=== PATIENT | female | born 1950 | race Caucasian/White ===

== ENCOUNTER 2020-04-25 18:07 | Inpatient (IN) | payer OTHER ==
[~2020-04-25] VITALS: Ht 167.6 cm; Wt 56.4 kg
[2020-04-25] MEDS ORDERED: TRAMADOL 50 MG50 MG PO (19:41)
[2020-04-25] MEDS ORDERED: COLACE100 MG PO (19:42)
[2020-04-25] MEDS ORDERED: LISINOPRIL20 MG PO (19:42)
[2020-04-25] MEDS ORDERED: PROTONIX40 M2 PO (19:42)
[2020-04-25] MEDS ORDERED: LIPITOR80 MG PO (19:43)
[2020-04-25] MEDS ORDERED: REMERON15 M2 PO (19:43)
[2020-04-25] MEDS ORDERED: VITAMIN D325 MCG PO (19:44)
[2020-04-25] MEDS ORDERED: ASA81BEC PO (19:44)
[2020-04-25] MEDS ORDERED: CLONAZEPAM 0.50.5 M1 PO (19:45)
[2020-04-25] MEDS ORDERED: TOPROL XL25 MG PO (19:46)
[2020-04-25] MEDS ORDERED: ZYPREXA 5 MG TAB5 MG PO (19:46)
[2020-04-26 04:00] VITALS: BP 149/72
--- NOTE | 2020-04-26 06:23 | NUR ---
RECEIVED REPORT FROM ED LAURENT RN, PT ARRIVED ON UNIT 04-26-14 0400 PT AAOX4, VS B/P 149/72, P 96, R 20, 02 SAT 97% RA RR EVEN AND NONLABORED ON RA. PT HAS FULL ROM AND STEADY GAIT; FALL PRECAUTION IN PLACE. PT DENIES ANY PAIN AND SI/HI/VAH. PT DOES REPORT THAT SHE HAS BEEN SEEING AND HEARING KRISTEN HARMON AND HE IS . PT REPORTED SHE NEEDS PLACEMENT INTO A NURSING FACILITY. PT MEDICAL HX HTN, DYSLIPIDEMIA, GASTIC ULCER, ANXIETY AND DEPRESSION, 6 CARDIAC STENTS. PT BED WAS ADJUSTED FOR COMFORT, ZERO S/S OF ACUTE DISTRESS NOTED, PT WILL CONTINUE TO BE MONITOR PER [facility] PROTOCOL.
[2020-04-26 11:24] VITALS: BP 133/73
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
[2020-04-26 19:59] VITALS: BP 152/68
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
[2020-04-27 07:47] VITALS: BP 142/70
[2020-04-27 11:14] VITALS: BP 142/59
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
--- NOTE | 2020-04-27 14:56 | NUR ---
BRII administered a SLUMS with pt; she scored 26/30. SW team will continue to follow pt during her stay on this unit.
[2020-04-27 19:49] VITALS: BP 97/46
[2020-04-28 05:44] LABS: HEMATOCRIT 28.4 % (37.0-47.0); MCH 29.1 pg (26.0-34.0); MCHC 31.6 g/dL (28.0-37.0); MCV 92.1 fL (80.0-100.0); RBC 3.08 mil/uL (4.20-5.00); RDW 15.7 % (10.5-14.5); WBC 6.9 thou/uL (4.0-11.0)
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
[2020-04-28 06:34] LABS: CALCIUM 9.6 mg/dL (8.5-10.1); CREATININE 1.1 mg/dL (0.6-1.0); POTASSIUM 3.8 mmol/L (3.5-5.1)
[2020-04-28 09:20] VITALS: BP 123/64
[2020-04-28 09:25] VITALS: BP 123/64
--- NOTE | 2020-04-28 09:28 | NUR ---
ASSUMED CARE AT 0700 THIS MORNING. PT. UP, DRESSED AND IN THE DINING ROOM. SHE SAT UP UNTIL MEDS WERE PASSED AND TAKEN, AND BREAKFAST WAS GIVEN TO HER. THEN SHE WENT TO HER ROOM AND LAYED DOWN IN BED. SHE WAS QUIET, AND COOPERATIVE WITH STAFF.
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
[2020-04-28 20:20] VITALS: BP 93/38
--- NOTE | 2020-04-29 03:37 | NUR ---
ASSUMED CARE ON 04/28/20 @ 19:00, A&OX4, GIVING BOTH THE PRESIDENT ELECT BUZZ WELL THE PRESIDENT TR NAMES. COOPERATED WITH ASSESSMENT, HRRR, LUNGS CTA BILAT, ABD N X 4Q, REPORTS A SMALL BM TODAY. NO BEHAVIOR THAT INDICATES HALLUCINATIONS. ANXIETY AND DEPRESSION NOTED. COMPLIANT WITH GROUP UNDERWRITER, TAKES MEDS WHOLE WITH THIN WATER. DIET IS MECHANICAL GROUND SOFT. SLEEPING AT THIS WRITING, WILL CONTINUE TO MONITOR PER UNIT PROTOCOL FOR COMFORT AND SAFETY.
[2020-04-29 06:28] LABS: HEMATOCRIT 25.8 % (37.0-47.0); HEMOGLOBIN 8.3 gm/dL (12.0-15.0); MCH 29.7 pg (26.0-34.0); MCHC 32.2 g/dL (28.0-37.0); MCV 92.2 fL (80.0-100.0); RBC 2.8 mil/uL (4.20-5.00); RDW 15.7 % (10.5-14.5); WBC 6.8 thou/uL (4.0-11.0)
[2020-04-29 06:54] LABS: CALCIUM 9.3 mg/dL (8.5-10.1)
[2020-04-29 07:02] LABS: % SATURATION 6 % (20-39); IRON 28 ug/dL (50-170); TIBC 431 ug/dL (250-450)
[2020-04-29 07:31] LABS: FOLIC ACID 14.4 ng/mL (8.6-58.9)
[2020-04-29 09:17] VITALS: BP 137/56
--- NOTE | 2020-04-29 13:50 | NUR ---
SW met with pt who said that she was still hearing voices. She said that they are not telling her to harm herself, but instead that staff are going to be harmed. She said she is not currently experiencing SI. SW team will continue to follow pt during her stay on this unit.
--- NOTE | 2020-04-29 18:45 | NUR ---
patient calm but easily irritated. upset with peer wandering in room. spoke with margie marques - stated still hearing voices of male telling her not to eat. compliant with medications. ambulatory and continent. states still depressed and anxious at times. feels environment does not help with her stress.
[2020-04-29 19:47] VITALS: BP 112/57
[2020-04-30 00:06] LABS: GLYCOHEMOGLOBIN (HGB A1C) 5.6 % (4.8-5.6)
--- NOTE | 2020-04-30 03:16 | NUR ---
ASSUMED CARE ON 04/29/20 @ 19:00, COOPERATED WITH ASSESSMENT AND COMPLIANT WITH MEDICATION, ASKING FOR ANXIETY MEDICATION WHICH WAS PROVIDED @ 2200, AFTER WHICH SHE SLEPT QUIETLY, RESPIRATIONS EVEN AND UNLABORED. BED IN LOW POSIITON, WILL CONTINUE TO MONITOR PER UNIT PROTOCOL.
[2020-04-30 04:43] VITALS: BP 112/57
[2020-04-30 05:41] LABS: HEMATOCRIT 26.3 % (37.0-47.0); HEMOGLOBIN 8.5 gm/dL (12.0-15.0)
[2020-04-30 09:13] VITALS: BP 137/63
--- NOTE | 2020-04-30 12:20 | NUR ---
CONSTRICTED AFFECT-WITHDRAWN TO ROOM-NO NOTED INTERACTION WITH PEER GROUP AND REFUSED ACTIVITIES-HAS NOT MADE REFERENCE TO SEEING PEOPLE OR "THE MAN" SO FAR TODAY BUT HAS BEEN MINIMALLY VERBAL WITH STAFF.REQUESTED AND RECEIVED ATIVAN 0.5MG PO PRN AT 0915 FOR REPORTED ANXIETY. DENIES C/O PAIN. GAIT STEADY WITHOUT ASSISTIVE DEVICES.APPETTIE FAIR .COMOLIENT WITH MEDICATIONS.
--- NOTE | 2020-04-30 13:17 | NUR ---
SW spoke with pt and obtained her social security number. SW verified pt has active Medicaid with her social security number. BRII sent referrals to [facility], [facility], [facility], [facility], [facility], [facility], and [facility]. BRII team will continue to follow pt during her stay on this unit.
[2020-04-30 20:52] VITALS: BP 111/48
[2020-04-30 22:35] VITALS: BP 124/72
--- NOTE | 2020-05-01 06:25 | NUR ---
PROGRESS PT ALERT WITH FLAT AFFECT. DOESN'T MAKE EYE CONTACT FOR VERY LONG. REQUESTED NIGHT TIME MEDS AND SLEPT THROUGHOUT NIGHT.ON A MECHANICAL SOFT DIET BUT ABLE TO SWALLOW PILLS WHOLE. TAKING THIN LIQUIDS WITH SUPERVISION AND TOLERATING WITHOUT DIFFICULTY NO BM THIS SHIFT AWAITING SAMPLE FOR OCCULT BLOOD. UP AD EDDIE GAIT STEADY, PARTICIPATING IN GROUP THERAPY. ENCOURAGE PT TO CONTINUE TO PARTICIPATE.
[2020-05-01 09:59] VITALS: BP 110/64
[2020-05-01 11:11] VITALS: BP 110/64
--- NOTE | 2020-05-01 12:15 | NUR ---
RT PROGRESS NOTE- CHRISTIANO HAS NOT BEEN AN ACTIVE PARTICIPANT IN THE [place], RETURNING TO HER ROOM DURING ANY UNSCHEDULED TIME ON THE UNIT. WITH PLENTY OF ENCOURAGEMENT, CHRISTIANO ATTENDS RECREATION GROUPS BUT DOES NOT ACTIVELY ENGAGE SOCIALLY. SHE PRESENTS WITH DEPRESSED AFFECT ALMOST EACH TIME. WHEN ASKED TODAY IF SHE IS STILL HEARING VOICES SHE DOES ENDORSE THAT SHE IS HEARING THEM BUT DOES NOT OFFER MUCH INFORMATION COMPARED TO INTERVIEW UPON INITIAL ASSESSMENT WHEN SHE ADMITTED. MODERN GREEK STUDIES PROFESSOR WILL CONTINUE TO ENCOURAGE PARTICIPATION.
--- NOTE | 2020-05-01 13:14 | NUR ---
1310 RESUMMED CARE FROM OVERNIGHT SHIFT THIS AM, PATIENT IN ROOM QUIET CALM. PATIENT ATE BREAKFAST TOOK MEDICATION WITHOUT INCIDENCE, PATIENT TOOK A SHOWER THIS AM. PATIENTS ALERT AND ORIENTED TIMES 4 PATIENTS ABDOMEN SOFT FLAT BOWEL SOUNDS PRESENT. PATIENTS LUNGS CLEAR PATIENT DENIES SI/HI BUT STILL HAS AH/VH OF THE MAN THAT IS . PATIENT STATES HE WAS TELLING HER NOT TO TALK WITH ME. PATIENT PARTICIPATED IN GROUPS PATIENT CALM COOPERATIVE DOES NOT INTERACT WITH OTHER PATIENTS. WILL CONTINUE TO MONITOR PATIENT FOR SAFETY AND BEHAVIORS.
[2020-05-01 20:35] VITALS: BP 102/53
--- NOTE | 2020-05-02 04:54 | NUR ---
ASSUMED PT'S CARE THIS PM SHIFT. PT ALERT AND ORIENTED. FORGETFUL. PT WAS IN HER RM AT TIME OF ASSESSMENT. WAS CALM AND COOPERATIVE WITH CARE. SLEPPT WELL THIS SHIFT. MEDS GIVEN PER EMAR. PT DID LOCK HER DOOR FEW TIMES STATING THAT A PEER WAS WANDERING INTO HER ROOM. PT VOICED THAT LIDOCAINE PATCH FELL OFF AT TIME OF SHOWER. PT'S SON CALLED WITH QUESTIONS REGARDING HOW MOM'S HALLUCINATIONS STARTED. NURSING INFORMED SON THAT IT OWULD BE BEST TO TALK WITH DOC. PT'S SON ALSO HAD CQUESTIONS REGARDING DC HE VOICED THAT PT'S LANDLORD WAS EVICTING PT. PT VOICED HE WOULD LIKE TO SPEAK WITH BOTH DOC AND SW. WILL PASS ON TO HAVE DOC AND SW CALL PT'S SON TODAY. WILL CONTINUE TO MONITOR PT.
[2020-05-02 08:16] VITALS: BP 123/63
--- NOTE | 2020-05-02 11:19 | NUR ---
BRII sent referrals to the following rcf's: [facility] [place], [facility], [facility], [facility], [facility], [place], [facility], [place], [place], [place], [facility], and [facility]. SW team will continue to follow tp during her stay on this unit.
--- NOTE | 2020-05-02 13:22 | NUR ---
Alert and orientated X4. Denies SI/HI. States she had several BMs last night, senna held. Also reporting that she had several seizures, none visualized. Regular steady gait. Breath sounds clear. Reg HR auscultated. Color pink with brisk capillary refill and palpable peripheral pulses. Independent with voiding. Active bowel sounds over soft, rounded abdomen. Asking that 0.5 cm brown macule with raised vesicular area on about half of the macule on her R upper chest to be assessed. States it has been there for about a year. Isolating in room most of the day.
[2020-05-02 19:20] VITALS: BP 127/51
--- NOTE | 2020-05-03 04:20 | NUR ---
ASSUMED PT'S CARE THIS PM SHIFT. PT ALERT AND ORIENTED. PT WAS CALM AND COOPERATIVE WITH CARE. TOOK MEDS PER EMAR. PT DENIED PAIN THIS SHIFT. AMBULATES INDEPENDENTLY. WILL CONTINUE TO MONITOR.
[2020-05-03 08:15] LABS: EOSINOPHILS 2.3 % (0.0-3.0); HEMATOCRIT 23.3 % (37.0-47.0); HEMOGLOBIN 7.3 gm/dL (12.0-15.0); LYMPHOCYTES 30.5 % (24.0-44.0); MCH 28.2 pg (26.0-34.0); MCHC 31.5 g/dL (28.0-37.0); MCV 89.6 fL (80.0-100.0); MONOCYTES 8.7 % (1.0-8.0); PLATELET COUNT 416 thou/uL (150-400); POLYS 57.5 % (36.0-66.0); RBC 2.61 mil/uL (4.20-5.00); RDW 15.4 % (10.5-14.5); WBC 5.2 thou/uL (4.0-11.0)
[2020-05-03 08:39] LABS: ALBUMIN 3.4 g/dL (3.4-5.0); CALCIUM 9.6 mg/dL (8.5-10.1); CREATININE 0.9 mg/dL (0.6-1.0); MAGNESIUM 1.7 mg/dL (1.8-2.4); PHOSPHORUS 4.4 mg/dL (2.6-4.7); POTASSIUM 3.8 mmol/L (3.5-5.1); TOTAL BILIRUBIN 0.2 mg/dL (0.2-1.0); TOTAL PROTEIN 6.8 g/dL (6.4-8.2)
[2020-05-03 08:59] VITALS: BP 106/56
[2020-05-03] MEDS ORDERED: CLONAZEPAM 1 MG1 M1 PO (10:08)
[2020-05-03] MEDS ORDERED: BUSPIRONE HCL10 MG PO (10:10)
[2020-05-03] MEDS ORDERED: METOPROLOL SUCC25 M1 PO (10:16)
--- NOTE | 2020-05-03 11:26 | NUR ---
PT CARE ASSUMED AT 0700. A&Ox4. PT PARTICIPATING IN GROUP THERAPY. CALM AND COOPERATIVE. DULOXETINE STARTED AT 40MG WAS ON 60MG AT HOME. NO HALLUCINATION NOTED AT THIS MOMENT. VITALS STABLE. HAS EATEN BOTH MEALS. ALL MEDICATIONS TAKEN PER EMAR. WILL CONTINUE TO MONITOR.
--- NOTE | 2020-05-03 19:49 | NUR ---
ASSUMED CARE OF PATIENT AT 1900. PATIENT RESTING IN BED WITH EYES OPEN. SHE DENIES PAIN, SI, HI, AND AVH. PATIENT HAS BILATERAL LCTA, HEART SOUNDS S1S2 HEARD AND REGULAR. BOWEL SOUNDS ACTIVE X 4 QUADS. PATIENT VERY PALE IN FACE. NO SOA. VSS. REPORT CALLED TO KARELY ON 4W AT 1930. PATIENT BEING TRANSFERRED BY WC WITH MASK ON. STOOL TO BE COLLECTED. HS MEDS GIVEN BEFORE TRANSFER. PATIENT STABLE.
[2020-05-03 20:20] VITALS: BP 98/41
[2020-05-03 20:45] LABS: HEMATOCRIT 21.9 % (37.0-47.0); HEMOGLOBIN 7.1 gm/dL (12.0-15.0)
--- NOTE | 2020-05-04 07:55 | EKG ---
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
== END 2020-05-03 20:31 | disposition short-term general hospital (02) | DRG 881 ==
LOC: SBH
PROVIDERS: Internal Medicine; ADMIT Psychiatry & Neurology Psychiatry; ATTEND Psychiatry & Neurology Psychiatry
DX: F32.9 Major depressive disorder, single episode, unspecified (principal); N17.9 Acute kidney failure, unspecified; R45.851 Suicidal ideations; E78.5 Hyperlipidemia, unspecified; F41.9 Anxiety disorder, unspecified; K21.9 Gastro-esophageal reflux disease without esophagitis; R73.9 Hyperglycemia, unspecified; F20.9 Schizophrenia, unspecified; F44.81 Dissociative identity disorder; F29 Unspecified psychosis not due to a substance or known physiological condition; F03.90 Unspecified dementia, unspecified severity, without behavioral disturbance, psychotic disturbance, mood disturbance, and anxiety; R06.02 Shortness of breath; I10 Essential (primary) hypertension; K25.9 Gastric ulcer, unspecified as acute or chronic, without hemorrhage or perforation; E53.8 Deficiency of other specified B group vitamins; D64.9 Anemia, unspecified; Z20.828 Contact with and (suspected) exposure to other viral communicable diseases; Z79.899 Other long term (current) drug therapy; Z79.82 Long term (current) use of aspirin; Z95.5 Presence of coronary angioplasty implant and graft
CPT/HCPCS: 10880

== ENCOUNTER 2020-04-25 19:20 | Emergency (ER) | payer OTHER ==
[~2020-04-25] VITALS: Ht 152.4 cm; Wt 59.0 kg
[2020-04-25] MEDS ORDERED: TRAMADOL 50 MG50 MG PO (19:41)
[2020-04-25] MEDS ORDERED: LISINOPRIL20 MG PO (19:42)
[2020-04-25] MEDS ORDERED: PROTONIX40 M2 PO (19:42)
[2020-04-25] MEDS ORDERED: COLACE100 MG PO (19:42)
[2020-04-25] MEDS ORDERED: LIPITOR80 MG PO (19:43)
[2020-04-25] MEDS ORDERED: REMERON15 M2 PO (19:43)
[2020-04-25] MEDS ORDERED: ASA81BEC PO (19:44)
[2020-04-25] MEDS ORDERED: VITAMIN D325 MCG PO (19:44)
[2020-04-25] MEDS ORDERED: CLONAZEPAM 0.50.5 M1 PO (19:45)
[2020-04-25] MEDS ORDERED: ZYPREXA 5 MG TAB5 MG PO (19:46)
[2020-04-25] MEDS ORDERED: TOPROL XL25 MG PO (19:46)
[2020-04-26 04:15] VITALS: BP 102/46
== END 2020-04-26 04:20 | disposition still patient (30) ==
LOC: ER 19:20
DX: F29 Unspecified psychosis not due to a substance or known physiological condition (principal); F03.90 Unspecified dementia, unspecified severity, without behavioral disturbance, psychotic disturbance, mood disturbance, and anxiety; Z79.82 Long term (current) use of aspirin; Z79.899 Other long term (current) drug therapy; Z20.828 Contact with and (suspected) exposure to other viral communicable diseases

== ENCOUNTER 2020-05-03 19:10 | Inpatient (IN) | payer OTHER ==
[~2020-05-03] VITALS: Ht 170.2 cm; Wt 65.8 kg
[~2020-05-03 19:10] MED LIST: ASA81BEC PO; BUSPIRONE HCL10 MG PO; CLONAZEPAM 0.50.5 M1 PO; CLONAZEPAM 1 MG1 M1 PO; COLACE100 MG PO; LIPITOR80 MG PO; LISINOPRIL20 MG PO; METOPROLOL SUCC25 M1 PO; PROTONIX40 M2 PO; REMERON15 M2 PO; TOPROL XL25 MG PO; TRAMADOL 50 MG50 MG PO; VITAMIN D325 MCG PO; ZYPREXA 5 MG TAB5 MG PO
[2020-05-03 21:05] VITALS: BP 121/57
[2020-05-04 01:24] VITALS: BP 102/82; BP 94/69
--- NOTE | 2020-05-04 01:30 | NUR ---
Blood transfusion was started and blood varified with Abigail GARCIA ([place] super- visor). Blood bank account matches the account on the blood infusion bag. Pt. offers no complaints.
--- NOTE | 2020-05-04 04:45 | NUR ---
Pt. tolerated blood transfusion without difficulty.
[2020-05-04 05:05] VITALS: BP 130/65
--- NOTE | 2020-05-04 06:12 | NUR ---
Pt. admitted to [facility] unit from [facility]. She is alert and oriented. Pt. accompanied by staff. She offers no complaints. Am- bulates steadily. Admission assessment and history is completed.
[2020-05-04 07:12] LABS: HEMATOCRIT 26.1 % (37.0-47.0); HEMOGLOBIN 8.4 gm/dL (12.0-15.0); MCH 29.3 pg (26.0-34.0); MCHC 32.4 g/dL (28.0-37.0); MCV 90.5 fL (80.0-100.0); RBC 2.88 mil/uL (4.20-5.00); RDW 14.9 % (10.5-14.5); WBC 5.4 thou/uL (4.0-11.0)
[2020-05-04 07:26] LABS: CALCIUM 9.1 mg/dL (8.5-10.1); CREATININE 0.9 mg/dL (0.6-1.0); TOTAL BILIRUBIN 0.3 mg/dL (0.2-1.0); TOTAL PROTEIN 5.9 g/dL (6.4-8.2)
[2020-05-04 08:11] VITALS: BP 128/70
--- NOTE | 2020-05-04 10:00 | NUR ---
Assess due to RD consult received for high nutrition screening risk. Admit from [facility] unit to medical floor due to drop in hgb levels/anemia. Hx psychosis, SI, HLD, htn and gastric ulcer. Visit this am, pt asking for solid food, and just had a liquid tray. States appetite has been very good and this was confirmed while on [facility] unit eating 100%. Pt did report about 20 lb wt loss over past year but could not relate reason. GI has assessed this am, and diet will advanced but NPO tomorrow for procedure. Low nutrition risk at this time
--- NOTE | 2020-05-04 12:05 | NUR ---
PT A&OX4, VSS, DENIES PAIN. PATIENT ADAMANT ABOUT DISCHARGING. PATIENT REFUSED ANTIBIOTICS. NO SIGNS OF DISTRESS. IV REMOVED. PATIENT DISCHARGED HOME WITH ANTIBIOTICS. ALL BELONGINGS WITH PATIENT.
--- NOTE | 2020-05-04 12:14 | NUR ---
PT ADMITTED RELATED TO ANEMIA. CM REVIEWED CHART AND SPOKE WITH CARE TEAM. CM CALLED AND SPOKE WITH PT THIS DAY. PT APPEARED TO BE A&O X4. CM ROLE INTRODUCED. PT INDICATED SHE HAD BEEN LIVING ALONE IN A DUPLEX IN [facility]. 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 PT INDICATED SHE HADN'T HAD ANY O2 OR NEBULIZER TREATMENTS AT HOME. PT'S PCPC OS DR. LAURENT LORD. PT INDICATED THAT HSE HAD ADMITTED TO [facility] 04/26. CM IDNICATED THAT IF SHE CAN'T RETURN HOME THAT SHE NEEDS TO GO TO AN AL FACILITY. IT LOOKS LIKE [facility] HAD SENT REFERRALS TO A NUMBER OF FACILITIES FOR REVIEW FOR POSSIBLE ADMISSION. PT CONFIRMED THAT SHE WAS GOING TO BE EVICTED FROM HER CUPLEX. PT INDICATED SHE HADN'T SPOKEN WITH LISETH MARTINEZ. CM TO ATTEMPT PC TO HIM. PT SAW PT AND DISCHARGED HER. CM TO FOLLOW INDICATED WITH DC PLANNING. PT TO HAVE EGD THIS AM.
--- NOTE | 2020-05-04 19:41 | NUR ---
PT A&OX3-4, VSS, DENIES PAIN. PATIENT STATES SHE HAS AUDITORY HALLUCINATIONS. PATIENT HAS FLAT AFFECT, HAS BEEN COOPERATIVE. PATIENT TOLERATING DIET, RESTED IN BED. PATIENT STEADY ON FEET, SBA TO BATHROOM. NO SIGNS OF DISTRESS. WILL CONTINUE TO MONITOR.
[2020-05-04 19:58] VITALS: BP 130/71
--- NOTE | 2020-05-05 06:58 | NUR ---
Pt. rested quietly during the night when checked on during frequent rounds. She requested a lidoderm and nicotine patch. Tessy RIVERA notified this shift and new orders received (see cpoe). Pt. has been up ad loni and steady on her feet. No reports of any hallucinations.
[2020-05-05 09:12] VITALS: BP 125/64
--- NOTE | 2020-05-05 12:26 | NUR ---
PT HAVING AN EGD THIS DAY. CM CALLED PT'S LANDLORD AND LEFT VM. PT AND OT INDICATED THAT PT WOULD BE SAFE TO RETUTN HOME ONCE MEDICALLY STABLE. CM TO FOLLOW INDICATED WITH DC PLANNING.
--- NOTE | 2020-05-05 19:23 | NUR ---
PT A&OX4, VSS, DENIES PAIN. PATIENT REMOVED IV THIS AM AND DID NOT WANT THIS NURSE TO REPLACE. PATIENT STATED SHE WOULD RATHER HAVE OR PLACE IT. RIGHT FA IV PLACED IN OR. PATIENTS IRON WAS NOT GIVEN DUE TO ROUTE NOT BEING AVAILABLE. CLONAZEPAM AND METOPROLOL GIVEN THIS AM D/T BEING NPO. PATIENT HAD EGD TODAY AND RETURNED TO FLOOR APPROX 1400. APPROX 1800 PATIENT STATES SHE WANTS THE IRON TO BE GIVEN. THIS NURSE TOLD PATIENT THE NEXT DOSE IS DUE AT 0900 TOMORROW AND I WOULD RATHER START THAT DOSE. PATIENT CAME OUT OF ROOM YELLING APPROX 1815, STATING SHE WANTS THE IRON NOW AND HOW UPSET SHE IS. PATIENT WAS GIVEN IRON AT 1845. NO SIGNS OF DISTRESS, WILL CONTINUE TO MONITOR.
[2020-05-05 19:48] VITALS: BP 123/62
[2020-05-06 05:42] LABS: HEMATOCRIT 25.4 % (37.0-47.0); HEMOGLOBIN 8.3 gm/dL (12.0-15.0); MCH 29.7 pg (26.0-34.0); MCHC 32.7 g/dL (28.0-37.0); RBC 2.79 mil/uL (4.20-5.00); RDW 15.3 % (10.5-14.5); WBC 7.1 thou/uL (4.0-11.0)
--- NOTE | 2020-05-06 08:27 | P ---
[facility] [place] [address] [place] [address] PROCEDURE REPORT Name: CHRISTIANO QUEEN Room #: 457-P ADM IN M.R.#: [id number] Admission: 05/03/20 Attend Phys: Matt Fisher MD Discharge: Date of : 46 Report #: [id number] THIS REPORT FOR: cc: FAM - Family physician unknown FAM - Family physician unknown Moises Harvey MD ~ DATE OF SERVICE: 05/05/2020 PROCEDURE PERFORMED: Upper endoscopy with biopsies. HISTORY OF PRESENT ILLNESS: The patient is a 69-year-old female with a history of anemia. Hemoglobin on admission was 9, it has dropped to a low of 7.1 during this hospitalization, did not require blood transfusions. Her most recent hemoglobin was yesterday at 8.4. She has been receiving IV iron infusions. She has a history of peptic ulcer disease, apparently diagnosed [address] [facility]. Since that time, she has been taking Protonix on a daily basis. She is on aspirin 81 mg. She does report some dark stools, unclear if the patient has been on oral iron recently. Her stool was Hemoccult negative x 1 here on 05/02/2020. Plan is for EGD. The patient denies any dysphagia, nausea or vomiting. DESCRIPTION OF PROCEDURE: The risks and benefits of the procedure were explained to the patient, those risks including but not limited to bleeding, perforation and the risk of sedation. She understood these risks and gave informed consent. Sedation was given using propofol per anesthesia. Next, using a standard Olympus upper endoscope, the scope was placed in the patient's mouth and advanced under direct vision through the esophagus, stomach and into the second portion of the duodenum. The larynx was normal in appearance. The esophagus was normal throughout. The GE junction was normal. Upon entering the stomach, a medium-sized hiatal hernia was noted. Overall, the gastric mucosa was normal. No evidence of ulcerations or erosions. The pylorus was normal and patent. The duodenal bulb, first and second portion were all normal. Biopsies of the duodenum were obtained to rule out the possibility of celiac sprue. Scope was then withdrawn and the procedure terminated. The patient tolerated the procedure well. IMPRESSION: 1. Medium-sized hiatal hernia. 2. Otherwise, normal upper endoscopy. RECOMMENDATIONS: 1. Await biopsy results. 2. Continue daily PPI therapy. 3. Continue to monitor hemoglobin. Stool is Hemoccult negative x 1. 4. Upper endoscopy was normal. The patient reportedly had colonoscopy [address] [address] PROCEDURE REPORT Name: CHRISTIANO QUEEN Room #: 457-P [facility] IN ..#: [id number] Admission: 05/03/20 Attend Phys: Matt Fisher MD Discharge: Date of : 46 Report #: [id number] ago that was normal. We will continue to follow. Thank you for allowing me to participate in her care. <ELECTRONICALLY SIGNED> By: Moises Harvey MD 05/06/20 0827 1311 [id number] Moises Harvey MD /nt
[2020-05-06 08:34] VITALS: BP 134/74
--- NOTE | 2020-05-06 15:45 | NUR ---
CM FOLOWED UP WITH PT THIS AM TO SEE IF SHE HAD CONTACTED HER LANDLORD JUAN CRAFT. SHE INDICATED SHE HAD LEFT HIM TWO VM'S BUT HADN'T SPOKEN WITH HIM YET. CM ASKED IF CM MIGHT CALL HIM WELL AND PT CONSENTED. CM CALLED AND SPOKE WITH JUAN. HE PROVIDED CM WITH THE INFO FOR [facility] [employer]NA[employer] TO ASSIST PT WITH PROCESS OF APPLYING FOR RENT ASSISTANCE . CM CALLED AND WENT THROUGH PROMPTS RECORDING STATED THAT THEY ADMINISTRATIVE OFFICE IS CLOSED. CM LEFT VM WITH PT'S NAME AND CONTACT INFO WELL CM'S. CM NOTIFIED PT AND JUAN THE LANDLORD OF THESE ACTIONS. JUAN CRAFT IS HER LANDLORD P: [email or web address].. HE INDICATED THAT PT IS PERMITTED TO RETURN TO HER DUPLEX WITH THE EXPECTATION THAT SHE REACH OUT TO HIM TO MAKE SOME SORT OF PARTIAL PAYMENT. PT HAS HER CELL PHONE IN HAND NOW AND IT IS FULLY CHARGED. CARE TEAM INDICATE THAT PT WILL LIKELY BE MEDICALLY STABLE TO DISCHARGE HOME TOMORROW. DR. MONTENEGRO INDICATED THAT PT IS SAFE TO RETURN TO HER HOME ENVIRONMENT. PT MAY NEED TRNASPORT HOME TOMORROW IF HER SON ISN'T ABLE TO PICK HER UP. CAB VOUCHER CAN BE OBTAINED FROM US IN THE LEFT HAND TOP DRAWER OF THE Med fusion DESK.
[2020-05-06 16:21] LABS: URINE BILIRUBIN NEGATIVE (Negative); URINE BLOOD NEGATIVE (Negative); URINE CLARITY CLEAR; URINE COLOR YELLOW; URINE GLUCOSE-RANDOM* NEGATIVE (Negative); URINE KETONES NEGATIVE (Negative); URINE LEUKOCYTES-REFLEX NEGATIVE (Negative); URINE NITRITE-REFLEX NEGATIVE (Negative); URINE PROTEIN (DIPSTICK) NEGATIVE (Negative); URINE UROBILINOGEN 0.2 E.U./dl (0.2-1.0)
[2020-05-06 16:55] VITALS: BP 126/64
--- NOTE | 2020-05-06 17:06 | PATH ---
[facility] [address] [place] [address] PATHOLOGY RPT PROCEDURE Name: CHRISTIANO QUEEN Room #: 457-P ADM IN M.R.#: [id number] Admission: 05/03/20 Date of : 46 Discharge: Report #: [id number] Path Case #: [id number] [facility] Accession Number: [id number] . 01 Material submitted: . duodenum - DUODENAL BIOPSY R/O SPRUE . 01 Clinician provided ICD-10: y . 01 Clinical history: . UPPER GI BLEED, ANEMIA, HIATAL HERNIA . 02 Diagnosis: Small bowel mucosa, duodenum to rule out sprue: - No significant diagnostic abnormalities present. - Negative for villous blunting or increased in intraepithelial lymphocytes. (IUV:laboratory clerk; 05/06/2020) MBR 05/06/2020 1334 Local . 02 Electronically signed: . Digna Kwong MD, Pathologist NPI- [id number] . 01 Gross description: . Received in formalin labeled "Christiano Queen, duodenal biopsy rule out sprue" are multiple oneil-brown soft tissue fragments measuring in aggregate 0.9 x 0.3 x 0.2 cm. The specimen is submitted entirely in A1. ([facility]; 05/05/2020) GZA/GZA 05/05/2020 1838 Local . 02 Pathologist provided ICD-10: K92.2, D64.9 . 02 CPT . 238630 Specimen Comment: A courtesy copy of this report has been sent to [phone], [phone]- Specimen Comment: [id number] Specimen Comment: Report sent to / Performed at: [address] [id number] MD Odilon Whiteside MD Phone: [phone] Performed at: 02 [facility] [address] [place] [address] PATHOLOGY RPT PROCEDURE Name: CHRISTIANO QUEEN Room #: 457-P [facility] IN M.R.#: [id number] Admission: 05/03/20 Date of : 46 Discharge: Report #: [id number] Path Case #: [id number] [address] [place] [id number] MD Digna Kwong MD Phone: [phone]
--- NOTE | 2020-05-06 20:55 | NUR ---
PT A&OX4, VSS, PAIN IN BACK. PATIENT COOPERATIVE TODAY. NEW IV PLACED IN RIGHT WRIST. NO SIGNS OF DISTRESS. WILL CONTINUE TO MONITOR.
[2020-05-07 05:41] LABS: HEMATOCRIT 26.4 % (37.0-47.0); HEMOGLOBIN 8.6 gm/dL (12.0-15.0); MCH 29.6 pg (26.0-34.0); MCHC 32.4 g/dL (28.0-37.0); MCV 91.3 fL (80.0-100.0); RBC 2.89 mil/uL (4.20-5.00); RDW 15.6 % (10.5-14.5); WBC 6.4 thou/uL (4.0-11.0)
--- NOTE | 2020-05-07 07:55 | NUR ---
PROGRESS PT CALM AND COOPERATIVE, UP AD EDDIE VOIDING QS TOOK MEDICATION WITHOUT DIFFICULTY TELE READING SR IN 80'S
[2020-05-07 08:33] VITALS: BP 147/47
[2020-05-07] MEDS ORDERED: CLONAZEPAM 0.50.5 M1 PO (11:22)
[2020-05-07] MEDS ORDERED: ALTACE5 MG PO (11:22)
[2020-05-07] MEDS ORDERED: ZYPREXA 5 MG TAB5 M1 PO ×2 (11:22)
[2020-05-07] MEDS ORDERED: ADULT LOW DOSE81 MG PO (11:22)
[2020-05-07] MEDS ORDERED: LIDOPATCH1 EACH TRANSDERM (11:22)
--- NOTE | 2020-05-07 12:21 | NUR ---
PT IS AOX4, VSS, NO PAIN AT THIS TIME. PT UP AD EDDIE IN ROOM. PT RECEIVED DISCHARGED INSTRUCTIONS, PT VERBALIZED UNDERSTANDING. IV D/C'D. TRANSFERRED TO SECURITY WITH CAB VOUCHER.
[2020-05-07 12:53] VITALS: BP 147/47
== END 2020-05-07 13:21 | disposition home or self-care (01) | DRG 378 ==
LOC: 4W 19:10
PROVIDERS: Internal Medicine; Nurse Practitioner; ADMIT Hospitalist; ATTEND Hospitalist
PROC: 30233N1 Transfusion of Nonautologous Red Blood Cells into Peripheral Vein, Percutaneous Approach (ICD-10-PCS; 2020-05-04)
PROC: 0DB98ZX Excision of Duodenum, Via Natural or Artificial Opening Endoscopic, Diagnostic (ICD-10-PCS; principal; 2020-05-05)
DX: K25.4 Chronic or unspecified gastric ulcer with hemorrhage (principal); R45.851 Suicidal ideations; D62 Acute posthemorrhagic anemia; K44.9 Diaphragmatic hernia without obstruction or gangrene; F32.9 Major depressive disorder, single episode, unspecified; E78.5 Hyperlipidemia, unspecified; F41.9 Anxiety disorder, unspecified; I25.10 Atherosclerotic heart disease of native coronary artery without angina pectoris; I10 Essential (primary) hypertension; E53.8 Deficiency of other specified B group vitamins; K21.9 Gastro-esophageal reflux disease without esophagitis; R73.9 Hyperglycemia, unspecified; M19.90 Unspecified osteoarthritis, unspecified site; M81.0 Age-related osteoporosis without current pathological fracture; R63.4 Abnormal weight loss; R39.11 Hesitancy of micturition; F29 Unspecified psychosis not due to a substance or known physiological condition; G89.4 Chronic pain syndrome; F60.9 Personality disorder, unspecified; R13.10 Dysphagia, unspecified; D50.9 Iron deficiency anemia, unspecified; I73.9 Peripheral vascular disease, unspecified; Z95.5 Presence of coronary angioplasty implant and graft; Z79.82 Long term (current) use of aspirin; Z79.899 Other long term (current) drug therapy; Z87.11 Personal history of peptic ulcer disease; Z68.22 Body mass index [BMI] 22.0-22.9, adult
CPT/HCPCS: 10045; 62110; 62900; 70005

== ENCOUNTER 2020-08-13 09:09 | Inpatient (IN) | payer OTHER ==
[~2020-08-13] VITALS: Ht 165.1 cm; Wt 59.9 kg
[~2020-08-13 09:09] MED LIST changes: +ADULT LOW DOSE81 MG PO; +ALTACE5 MG PO; +LIDOPATCH1 EACH TRANSDERM; +ZYPREXA 5 MG TAB5 M1 PO
[2020-08-13 16:56] VITALS: BP 140/78
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
[2020-08-13 20:10] VITALS: BP 130/67
--- NOTE | 2020-08-14 03:15 | NUR ---
PT CARE ASSUMED WITH PT IN THE ROOM AT 1900 ANGRY ABOUT THE RECEIVING MEDICATION WHICH WAS SUPPOSED TO HAVE BEEN GIVEN EARLIER.STAFF EXPLAINED TO PT WHEN SHE WILL BE TAKING HER MEDICATION.NIGH MEDICATION ADMINISTERED AND PT TOOK MEDICATION WITH NO ISSUES .PT REMAINED IN BED TILL THIS TIME.PT REFUSED TO WEAR HOSPITAL GOWN AND WANTS HER OWN CLOTHING AND BELONGINGS.WILL CONTINUE TO MONITOR
--- NOTE | 2020-08-14 08:32 | NUR ---
Assess for admission to [facility] for unspecified pyschosis. Hx schizophrenia. On regular diet. Has been a patient here in past and typically ate very well, 100% of meals. Mild wt loss 5 lb x 4 months/3%. BMI is 21.3 healthy range. Low nutrition risk at this time.
[2020-08-14 08:43] VITALS: BP 152/89
--- NOTE | 2020-08-14 11:53 | NUR ---
Assumed pt care at 0700. pt was Alert and oriented x3. Took meds whole with thin liquid. went back to room after breakfast TO lay down. Denies si/hi. at this time there is no c/o of pain. ambulates with a steady gait. Assessments completed, vss. NO SIGN OF ACUTE DISTRESS NOTED UPON ASSESSMENTS. WILL CONTINUE TO MONITOR.
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
[2020-08-14 19:18] VITALS: BP 132/60
--- NOTE | 2020-08-15 02:05 | NUR ---
patient isolative this shift. patient had a flat affect, poor eye contact, fair grooming and hygiene. patient encouraged fluids. patient denied all psych issues. patient in bed asleep at this time breathing regular and unlaboured.
[2020-08-15 09:12] VITALS: BP 106/60
[2020-08-15 09:25] VITALS: BP 106/60
--- NOTE | 2020-08-15 09:54 | NUR ---
PT. PARTICIPATED IN R.T. GROUP THIS MORNING. SHE DID KICK THE BALL WITH PEERS AND STAFF. HOWEVER, SHE SAT QUIETLY MOST OF THE TIME, NOT REMARKING ON MUCH OF ANYTHING. SHE DID STATE HER GOAL WAS TO TALK TO THE DR. SO SHE CAN GO HOME.
[2020-08-15 10:45] VITALS: BP 106/60
--- NOTE | 2020-08-15 10:59 | NUR ---
PT. SAT IN A CHAIR BEHIND THE GROUP FOR THE R.T. GROUP. SHE SAT QUIETLY BUT DID NOT PARTICIPATE IN THE GROUP BUT LISTENED. SHE WAS RESPECTFUL OF OTHERS.
--- NOTE | 2020-08-15 14:31 | NUR ---
1430 RESUMMED CARE FROM OVERNIGHT SHIFT THIS AM, PATIENT QUIET IN ROOM. PATIENT ATE BREAKFAST TOOK MEDICATION WITHOUT INCIDENCE; PATIENT ALERT ORIENTED TIMES 4. PATIENTS ABDOMEN SOFT BOWEL SOUNDS PRESENT PATIENTS LUNGS CLEAR. PATIENT DENIES SI/HI/AH/VH AT PRESENT PATIENT CALM COOPERATIVE AFFECT FLAT. PATIENT DID PARTICIPATE IN GROUPS WILL CONTINUE TO MONITOR PATIENT FOR SAFETY AND BEHAVIORS.
[2020-08-15 19:00] VITALS: BP 97/53
--- NOTE | 2020-08-16 02:58 | NUR ---
PT BEEN IN ROOM ALL THROUGH SHIFT, SLEEPING. WOKE UP TO TAKE MEDS, NO DIFFICULTIES.SHE HAS BEEN CALM AND COOPERATIVE.AMBULATING TO AND FROM BATHROOM WITH STEADY GAIT.
[2020-08-16 08:23] LABS: HEMATOCRIT 35.8 % (37.0-47.0); HEMOGLOBIN 12.2 gm/dL (12.0-15.0); MCH 31.1 pg (26.0-34.0); MCHC 34.2 g/dL (28.0-37.0); MCV 90.8 fL (80.0-100.0); RBC 3.94 mil/uL (4.20-5.00); RDW 14.2 % (10.5-14.5)
[2020-08-16 08:57] VITALS: BP 124/70
[2020-08-16 10:09] VITALS: BP 124/70
--- NOTE | 2020-08-16 11:11 | NUR ---
1105 RESUMMED CARE FROM OVERNIGHT SHIFT THIS AM, PATIENT IN ROOM LYING QUIETLY. PATIENT ALERT ORIENTED TIMES 4 PATIENT CAME ATE BREAKFAST TOOK MEDICATION WITHOUT INCIDENCE. PATIENT DENIES SI/HI/AH/VH AT PRESENT PATIENTS AFFECT FLAT. PATIENT COME TO GROUP NOT REALLY INTERACTING IN GROUPS; PATIENT WOULD RATHER STAY IN ROOM. PATIENTS ABDOMNEN SOFT BOWEL SOUNDS PRESENT PATIENTS LUNGS CLEAR. PATIENT CALM COOPERATIVE I ENCOURAGE PATIENT TO COME OUT OF ROOM MORE. PATIENT TALKED WITH ME ABOUT HER LONLINESS ABOUT HER GONE; AND HER OTHER 2 SONS DON'T REALLY CHECK ON HER. PATIENT DENIES SI/HI/AH/VH AT PRESENT. WILL CONTINUE TO MONITOR PATIENT FOR SAFETY AND BEHAVIORS.
[2020-08-16 19:47] VITALS: BP 96/54
--- NOTE | 2020-08-16 21:14 | NUR ---
PT ASLEEP IN BED UPON ARRIVAL TO SHIFT. EASILY AROUSED. PT UP TO RESTROOM 3 TIMES SINCE 1899 AND 2099. GOOD EYE CONTACT FLAT AFFECT, MINIMAL VERBAL INTERACTIONS. PT COMPLIANT WITH MEDICATION AND HS SNACK. STEADY GAIT.
[2020-08-17 09:52] VITALS: BP 109/57
[2020-08-17 10:33] VITALS: BP 109/57
--- NOTE | 2020-08-17 10:47 | NUR ---
Assumed pt care at 0700. pt was ALERT AND ORIENTED X4. PT HAS A FLAT AFFECT and APEARS DEPRESSED. Denies si/hi. there is no c/o of pain at this time. Ambulates with a steady gait.Assessments completed, vss. after eating breakfast pt went back to her room. Took meds whole, no difficulty noted. AM blood presure was 109/57. blood pressure meds held. will continue to monitor.
[2020-08-17 19:27] VITALS: BP 154/80
--- NOTE | 2020-08-18 00:16 | NUR ---
PT ALERT AND ORIENTED X 4 WITH FLAT AFFECT. AMB TO BR WITHOUT DIFFICULTY. PT TOOK HS MEDS WITHOUT DIFFICULTY. PT DENIES PAIN OR DISCOMFORT. NO SI/HI. WILL CONTINUE TO MONITOR.
[2020-08-18 09:21] VITALS: BP 125/94
--- NOTE | 2020-08-18 11:00 | NUR ---
BRII contacted Patricia Butterfield, Pt's sister . SW informed Patricia that the Pt wanted her to be the DPOA. SW provided education on what a DPOA. Patricia stated she was willing to be the Pt's DPOA. BRII will complete paperwork with the Pt and provide a copy to Patricia. BRII talked with the Pt again and informed her sister is willing to be her DPOA. BRII also had a conversation with Pt about signing herself in voluntary. Pt stated " I want to go home". SW asked again and Pt stated " NO". Pt did state she is willing to participate in case management services if a referred to [facility] facility. BRII will continue to follow
[2020-08-18 11:16] VITALS: BP 125/94
--- NOTE | 2020-08-18 11:39 | NUR ---
Assumed pt care at 0700. pt was alert and oriented x4. took meds whole, no difficulty noted. pt ambulates with a steady gait. pt is independent with toileting. denies si/hi. denies pain at this time. there is no sign of acute distress noted at this time. Assessments completed, vss. participated in groups. will continue to monitor pt.
[2020-08-18 19:06] VITALS: BP 125/75
--- NOTE | 2020-08-19 03:28 | NUR ---
08-18-20 CARE TRANSFERRED 1900 OBSERVED PT SITTING IN DAY ROOM. LATER PT AAOX4, VSS, RR EVEN AND NONLABORED ON RA. PT DENIES SI/HI AND PAIN. PT PRESENTS FLAT EFFECTS AND CALM. LATER ASSISTED PT IN BATHROOM AND NOTED PT HAD SMALL BM FORMED WITH YELLOW URINE. PT BED WAS ADJUSTED FOR COMFORT, ZERO S/S OF ACUTE DISTRESS NOTED, PT WILL CONTINUE TO BE MONITOR PER [facility].
[2020-08-19] MEDS ORDERED: LIPITOR40 MG PO (09:16)
[2020-08-19] MEDS ORDERED: EFFEXOR XR37.5 MG PO (09:17)
[2020-08-19] MEDS ORDERED: HALOPERIDOL 5 MG5 MG PO (09:17)
[2020-08-19 09:27] VITALS: BP 154/71
--- NOTE | 2020-08-19 09:39 | NUR ---
Pt will d/c home on 08/19/2020 @ 11am via Taxi. PT will need to follow up with [facility] to schedule an intake for case management and outpatient therapy. This information was provided to the Pt and add to the discharge. Pt has a follow up Dr. Wang with on 09/10/2020 @ 5047
[2020-08-19 11:04] VITALS: BP 129/83
[2020-08-19 11:21] VITALS: BP 129/83
--- NOTE | 2020-08-19 11:25 | NUR ---
ASSUMED CARE OF PT. AT 0700 TODAY. PT. CONTINIUES TO BE SECLUSIVE, REFUSING TO ATTEND TREATMENT GROUPS. SHE IS BEING DISCHARGED TODAY. SHE REFUSED TO ATTEND GROUP THIS MORNING. SHE SAT IN THE BATHROOM AND STATED SHE DID NOT WISH TO ATTEND. WENT OVER THE DISCHARGE PAPER WORK WITH PT. PT. SIGNED PAPER WORK. SHE IS READY TO GO HOME.
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
== END 2020-08-19 11:50 | disposition home or self-care (01) | DRG 885 ==
LOC: SBH
PROVIDERS: Hospitalist; ADMIT Psychiatry & Neurology Psychiatry; ATTEND Psychiatry & Neurology Psychiatry
DX: F20.9 Schizophrenia, unspecified (principal); F01.51 Vascular dementia, unspecified severity, with behavioral disturbance; F29 Unspecified psychosis not due to a substance or known physiological condition; E78.5 Hyperlipidemia, unspecified; I10 Essential (primary) hypertension; I25.10 Atherosclerotic heart disease of native coronary artery without angina pectoris; K25.9 Gastric ulcer, unspecified as acute or chronic, without hemorrhage or perforation; D50.9 Iron deficiency anemia, unspecified; Z95.5 Presence of coronary angioplasty implant and graft; Z82.49 Family history of ischemic heart disease and other diseases of the circulatory system
CPT/HCPCS: 10880

== ENCOUNTER 2020-08-13 11:31 | Emergency (ER) | payer OTHER ==
[~2020-08-13] VITALS: Ht 167.6 cm; Wt 59.0 kg
[2020-08-13 16:15] VITALS: BP 95/53
== END 2020-08-13 16:36 | disposition still patient (30) ==
LOC: ER 11:31
PROVIDERS: Emergency Medicine
DX: R41.82 Altered mental status, unspecified (principal); Z20.822 Contact with and (suspected) exposure to COVID-19; I10 Essential (primary) hypertension; E78.5 Hyperlipidemia, unspecified; I25.10 Atherosclerotic heart disease of native coronary artery without angina pectoris; Z95.5 Presence of coronary angioplasty implant and graft; Z79.899 Other long term (current) drug therapy; Z79.82 Long term (current) use of aspirin